=== PATIENT | female | born 1970 | race Caucasian/White ===

== ENCOUNTER → 2017-08-21 | Outpatient (CLI) | payer OTHER ==
[~2017-08-21] MED LIST: BUPROPION; HYDROCODONE-AP1 EAC6 PO; IBUPROFEN 800800 M1 PO; MICARDIS HCT 81 EACH PO; NEXIUM; NEXIUM40 MG PO; NORCO 5-325 TA1 EACH PO; SYNTHROID
== END ==
LOC: M.MRI 08-14 16:09
DX: M54.41 Lumbago with sciatica, right side (principal); M47.896 Other spondylosis, lumbar region; M25.551 Pain in right hip

== ENCOUNTER → 2018-06-04 | Outpatient (CLI) | payer OTHER | LOC: M.MRI 07:30 | DX: M47.26 Other spondylosis with radiculopathy, lumbar region (principal); M48.061 Spinal stenosis, lumbar region without neurogenic claudication ==

== ENCOUNTER → 2018-11-14 | Outpatient (CLI) | payer OTHER | LOC: M.MRI 07:13 | DX: S83.005D Unspecified dislocation of left patella, subsequent encounter (principal); M67.462 Ganglion, left knee; M71.22 Synovial cyst of popliteal space [Baker], left knee; X58.XXXD Exposure to other specified factors, subsequent encounter ==

== ENCOUNTER 2019-02-18 14:30 | Emergency (ER) | payer OTHER ==
[~2019-02-18] VITALS: Ht 157.5 cm; Wt 104.3 kg
[2019-02-18] MEDS ORDERED: IBUPROFEN 200200 M1 PO (14:49)
[2019-02-18] MEDS ORDERED: SYNTHROID112 MC1 PO (14:50)
[2019-02-18] MEDS ORDERED: NEXIUM40 MG PO (14:50)
[2019-02-18] MEDS ORDERED: MICARDIS 80 MG80 MG PO (14:51)
[2019-02-18] MEDS ORDERED: PROGESTERONE100 MG PO (14:51)
[2019-02-18] MEDS ORDERED: NORVASC2.5 MG PO (14:51)
[2019-02-18 15:22] VITALS: BP 143/79
== END 2019-02-18 15:23 | disposition home or self-care (01) ==
LOC: M.ERS 14:30
DX: M25.562 Pain in left knee (principal); F41.9 Anxiety disorder, unspecified; E03.9 Hypothyroidism, unspecified; K21.9 Gastro-esophageal reflux disease without esophagitis; F17.210 Nicotine dependence, cigarettes, uncomplicated; Z88.0 Allergy status to penicillin; Z88.1 Allergy status to other antibiotic agents

== ENCOUNTER → 2019-03-26 | Outpatient (CLI) | payer OTHER ==
[~2019-03-26] MED LIST changes: +IBUPROFEN 200200 M1 PO; +MICARDIS 80 MG80 MG PO; +NORVASC2.5 MG PO; +PROGESTERONE100 MG PO; +SYNTHROID112 MC1 PO
== END ==
LOC: M.RAD 06:59
DX: R05 Cough (principal); F17.200 Nicotine dependence, unspecified, uncomplicated

== ENCOUNTER 2019-05-27 11:54 | Emergency (ER) | payer OTHER ==
[~2019-05-27] VITALS: Ht 157.5 cm; Wt 99.8 kg
[2019-05-27] MEDS ORDERED: ZPAK PO (12:21)
[2019-05-27] MEDS ORDERED: PROMETH-CODEIN 65 ML PO (12:21)
[2019-05-27] MEDS ORDERED: ALBUTEROL2.5 MG/31 INH (12:21)
[2019-05-27] MEDS ORDERED: MEDROLDOSEPACK PO (12:21)
[2019-05-27] MEDS ORDERED: IPRAT-ALBUT 0.5-3 ML INH (12:23)
[2019-05-27 12:39] VITALS: BP 156/80
== END 2019-05-27 12:40 | disposition home or self-care (01) ==
LOC: M.ERS 11:54
DX: J20.9 Acute bronchitis, unspecified (principal); E03.9 Hypothyroidism, unspecified; K21.9 Gastro-esophageal reflux disease without esophagitis; I10 Essential (primary) hypertension; F41.9 Anxiety disorder, unspecified; F17.210 Nicotine dependence, cigarettes, uncomplicated; Z88.0 Allergy status to penicillin; Z88.1 Allergy status to other antibiotic agents

== ENCOUNTER 2019-06-10 16:40 | Emergency (ER) | payer OTHER ==
[~2019-06-10] VITALS: Ht 157.5 cm; Wt 96.6 kg
[~2019-06-10 16:40] MED LIST changes: +ALBUTEROL2.5 MG/31 INH; +IPRAT-ALBUT 0.5-3 ML INH; +MEDROLDOSEPACK PO; +PROMETH-CODEIN 65 ML PO; +ZPAK PO
[2019-06-10] MEDS ORDERED: CENTANY30 GM TOP (17:09)
[2019-06-10 17:38] VITALS: BP 167/105
== END 2019-06-10 17:39 | disposition home or self-care (01) ==
LOC: M.ERS 16:40
DX: S61.211A Laceration without foreign body of left index finger without damage to nail, initial encounter (principal); I10 Essential (primary) hypertension; F41.9 Anxiety disorder, unspecified; E03.9 Hypothyroidism, unspecified; K21.9 Gastro-esophageal reflux disease without esophagitis; F17.210 Nicotine dependence, cigarettes, uncomplicated; Z88.0 Allergy status to penicillin; Z88.1 Allergy status to other antibiotic agents; W25.XXXA Contact with sharp glass, initial encounter; Y92.89 Other specified places as the place of occurrence of the external cause; Y93.89 Activity, other specified; Y99.8 Other external cause status

== ENCOUNTER 2019-07-17 11:35 | Emergency (ER) | payer OTHER ==
[~2019-07-17] VITALS: Ht 157.5 cm; Wt 95.3 kg
[~2019-07-17 11:35] MED LIST changes: +CENTANY30 GM TOP
[2019-07-17] MEDS ORDERED: TOPROL XL50 MG PO (11:53)
[2019-07-17 12:28] LABS: INFLUENZA A ANTIGEN Negative (Negative); INFLUENZA B ANTIGEN Negative (Negative)
[2019-07-17 13:48] VITALS: BP 132/60
== END 2019-07-17 13:49 | disposition home or self-care (01) ==
LOC: M.ERS 11:35
PROVIDERS: Nurse Practitioner Family
DX: J40 Bronchitis, not specified as acute or chronic (principal); I10 Essential (primary) hypertension; F41.9 Anxiety disorder, unspecified; K21.9 Gastro-esophageal reflux disease without esophagitis; E03.9 Hypothyroidism, unspecified; F17.210 Nicotine dependence, cigarettes, uncomplicated; Z88.0 Allergy status to penicillin; Z88.1 Allergy status to other antibiotic agents

== ENCOUNTER 2019-08-25 06:05 | Inpatient (IN) | payer OTHER ==
[2019-08-14 09:12] LABS: ABSOLUTE BASOPHILS 0.1 thou/uL (0.0-0.2); ABSOLUTE EOSINOPHILS 0.1 thou/uL (0.0-0.7); ABSOLUTE LYMPHOCYTES 1.2 thou/uL (0.8-5.3); ABSOLUTE MONOCYTES 0.6 thou/uL (0.0-1.2); ABSOLUTE NEUTROPHILS 5.4 thou/uL (1.6-8.1); BASOPHILS 0.9 %; EOSINOPHILS 1.6 %; HEMATOCRIT 39.7 % (37.0-47.0); HEMOGLOBIN 14.2 gm/dL (12.0-15.0); LYMPHOCYTES 16.5 %; MCH 35.2 pg (26.0-34.0); MCHC 35.9 g/dL (28.0-37.0); MCV 98.1 fL (80.0-100.0); MONOCYTES 8.1 %; MPV 7.2 fl. (7.2-11.1); NUCLEATED RBCS 0 /100WBC; PLATELET COUNT* 259 thou/uL (150-400); POLYS 72.9 %; RBC 4.04 mil/uL (4.20-5.00); RDW-CV 13.2 % (10.5-14.5); WBC 7.3 thou/uL (4.0-11.0)
[2019-08-14 09:25] LABS: APTT 26.6 Seconds (25.0-31.3); INR 0.9; PROTIME 9.6 Seconds (9.20-11.50)
[2019-08-14 09:26] LABS: CALCIUM 9.3 mg/dL (8.5-10.1); CREATININE 0.8 mg/dL (0.6-1.3); POTASSIUM 4.1 mmol/L (3.5-5.1); TOTAL BILIRUBIN 0.7 mg/dL (<0.1-1.0); TOTAL PROTEIN 7.5 g/dL (6.4-8.2)
[2019-08-14 10:50] LABS: ESR (SEDRATE) 11 mm/hr (0-20)
[2019-08-15 02:07] LABS: GLYCOHEMOGLOBIN (HGB A1C) 4.9 % (4.8-5.6)
--- NOTE | 2019-08-22 14:57 | EKG ---
[place] [address] ELECTROCARDIOGRAM REPORT Name: QUENTIN PRITCHETT Room: [facility]#: [id number] Admission: Attend Phys: Lorne Jaquez DO Discharge: Date of : 70 Date of Service: 08/14/19918 Report #: [id number] THIS REPORT FOR: //name// [facility] Test Date: 2019-08-14 Test Time: 09:19:18 Pat Name: QUENTIN PRITCHETT Department: Room: Gender: F Glass Installer: : 1970 Requested By: Lorne Jaquez Order Number: [id number] Trey MD: Lorne Espitia Measurements Intervals Lenora Rate: 85 P: 38 VA: 145 QRS: 16 QRSD: 83 T: 47 QT: 343 QTc: 408 Interpretive Statements Sinus rhythm No previous ECG available for comparison Electronically Signed On 08-14-2019 9:57:11 CABLE RESPOOLER by Lorne Espitia [email or web address] <ELECTRONICALLY SIGNED> By: Lorne Espitia MD, [facility] 08/14/1957 8 8 Lorne Espitia MD, FACC /EPI
[~2019-08-25] VITALS: Ht 157.5 cm; Wt 96.6 kg
--- NOTE | ~2019-08-25 | OP ---
[facility] [address] [place] [address] OPERATIVE REPORT Name: QUENTIN PRITCHETT Room: [address] IN .R.#: [id number] Admission: 08/25/19 Attend Phys: Julio Cesar Damon Discharge: Date of : 70 Report #: [id number] THIS REPORT FOR: //name// cc: Claribel Richey Tami FNP ~ THIS REPORT FOR: //name// CC: Claribel Davis DICTATED BY: Diogo Patton DO DATE OF SERVICE: 08/25/2019 PREOPERATIVE DIAGNOSIS: Advanced degenerative joint disease of the right knee. POSTOPERATIVE DIAGNOSIS: Advanced degenerative joint disease of the right knee. PROCEDURE PERFORMED: Right total knee arthroplasty. SURGEON: Lorne Jaquez DO. ASSISTANTS: Diogo Patton DO and Juan Layne DO. ANESTHESIA: Local, general, and a peripheral block by Anesthesia. IMPLANTS USED: Zuleyma Persona total knee system with the following components: 1. A 6 narrow femur. 2. D tibial baseplate. 3. A 29 mm round patella. 4. A 12 mm medial congruent polyethylene insert. FINDINGS: On gross pathology, the patient had significant eburnated bone, especially in the lateral patellofemoral compartments. She had some valgus angulation that was corrected on physical exam and lacked about 3 degrees of full extension. There was some synovial hypertrophy in the suprapatellar area, which was excised during the operation. SPECIMENS REMOVED: None. ESTIMATED BLOOD LOSS: 100 mL. COMPLICATIONS: None. CONDITION: [place] [id number] OPERATIVE REPORT Name: QUENTIN PRITCHETT Room: [address] IN [facility].#: [id number] Admission: 08/25/19 Attend Phys: Julio Cesar Damon Discharge: Date of : 70 Report #: [id number] ANTIBIOTICS: 600 mg of clindamycin, IV piggyback and preop. OPERATIVE INDICATIONS: The patient is a pleasant 49-year-old female who has had significant right knee pain for some time. Her symptoms and x-ray findings were consistent with degenerative joint disease. Her symptoms were beginning to limit her activities of daily living, and she had become more sedentary. We discussed with her risks, benefits, complications, alternatives, and indications of a total knee arthroplasty with her and she elected to proceed to the operating room today. DESCRIPTION OF PROCEDURE: The patient was seen in the preoperative area. Correct operative site was marked. Verbal and written consents were obtained. She was transferred to the operative suite and placed in a supine position on the operating table and given the benefit of general anesthesia by the anesthesia team. Right lower extremity had a well-padded tourniquet placed and the right lower extremity was prepped and draped in the usual sterile fashion. Timeout was performed indicating the correct patient, procedure, and procedure site. All in attendance were in agreement. A tourniquet was inflated to 300 mmHg. A #10 scalpel was used to make an anterior longitudinal incision over the knee that was taken down to the level of capsule. A new #10 blade scalpel was used to perform a medial parapatellar arthrotomy and the joint was exposed proximally. We then used intramedullary drill for the femur to gain access to the canal and an intramedullary guide was placed. A distal femoral cutting block was held in place with bone pads, and the distal femoral resection was made using an oscillating saw. Excess bone and osteophytes were removed with rongeur. We then placed our external tibial guide and took 10 mm off the high medial side of the proximal tibia bone and placed bone pins. Then, an oscillating saw was once again used to perform resection of the proximal tibia. Electrocautery was used to release soft tissue attachments from the cut bone. Excess bone and osteophytes were removed with a rongeur. The knee was then taken into extension. A 10 mm spacer block was placed and found to have full extension and good coronal plane balancing. Two pins were removed and the knee was once again flexed. An AP femur sizer was placed. She was measured and found to be a size 6 femur. Appropriate 4-in-1 cutting block was placed and malleted into place and held with cross pins. Oscillating saw was once again used to complete the 4-in-1 cuts of the distal femur. Excess bone and osteophytes were removed with rongeur. The ACL and menisci were then excised from the knee to allow proper exposure. A trial tibia was then held in place with bone screws and verification alignment was made with a drop smooth. Femoral trial was then malleted into place and found to be appropriate for a narrow final implant. A 10 mm poly followed by 11 and 12 mm poly were then inserted. He found to be stable with full extension and good coronal and sagittal plane balancing with a 12 mm poly insert. The patella was then everted and denervated with electrocautery and then excised with an oscillating saw. She was measured to be a 29 mm round patella[place] [address] OPERATIVE REPORT Name: QUENTIN PRITCHETT Room: 150-[address] [facility] IN [facility]#: [id number] Admission: 08/25/19 Attend Phys: Julio Cesar Damon Discharge: Date of : 70 Report #: [id number]. Trial patella was inserted. The knee was taken through range of motion and found to have excellent patellar tracking. Trial implants were removed with the exception of the proximal tibia. The tibial reamer followed by the cruciate punch was used to prepare the tibia for the keel baseplate. Once this was performed, the trial was removed as well as bone screws. The knee was thoroughly irrigated with pulsatile lavage while cement was mixed on the back table under vacuum suction and final implants were sterilely passed to the back table. Cement was placed on the implant as well as the bony surfaces of the knee. Final implants were then malleted into place. Excess cement was removed with a [place] and a Mino. The 12 mm poly was inserted and found to be stable. The knee was held in extension while the cement hardened. Once cement had hardened, our final 12 mm poly was inserted and properly secured. Knee was once again thoroughly irrigated with pulsatile lavage. Local anesthetic was injected, and the tourniquet was deflated for a total tourniquet time of 62 minutes. Capsule was reapproximated using #1 Vicryl in a ajbltf-fo-tmerd fashion followed by running #1 Stratafix. Soft tissue was once again irrigated. PRP was injected into the capsule. The skin was closed using 2-0 Vicryl in an inverted subcuticular fashion followed by running 3-0 Stratafix. Dermabond skin glue was placed on the incision followed by sterile Mepilex dressing. The patient awakened from anesthesia and was transferred to the PACU in stable condition. All counts were performed to verify correct x 2. Dr. Jaquez was present throughout all critical decision making aspects of the case. POSTOPERATIVE PLAN: The patient will be monitored in PACU until awake and stable and transferred to the Med-Surg floor. She will be weightbearing as tolerated to the right lower extremity and will receive weight based antibiotics IV as well as p.o. analgesia and mechanical or chemical DVT prophylaxis. She will receive physical therapy while inpatient. By: [id number] cesar Jaquez DO /nt
[~2019-08-25 06:05] MED LIST changes: +CAMILA0.35 MG PO; +KAPSPARGO SPRIN50 MG PO; +PROAIR HFA8.5 GM INH; +TELMISARTAN-HC1 EAC2 PO; +TOPROL XL50 MG PO
[2019-08-25 07:04] VITALS: BP 123/60
--- NOTE | 2019-08-25 13:45 | NUR ---
PT TO ROOM 111 VIA BED. ON Q PUMP,FOOT PUMPS AND POLAR PACK IN PLACE. PAIN WELL CONTROLLED.PT ORIENTED TO ROOM,CALL LIGHT WITHIN REACH. BED ALARM ON
[2019-08-25 14:00] VITALS: BP 138/73
--- NOTE | 2019-08-25 18:04 | NUR ---
PT UP FROM OR THIS AFTERNOON. PAIN WELL CONTROLLED WITH PO MEDS. IVF INFUSING. PT UP WITH ASSIST AND WALKER.
[2019-08-25 20:30] VITALS: BP 157/87
[2019-08-26] VITALS: BP 159/101
[2019-08-26 03:25] LABS: HEMOGLOBIN 11.7 gm/dL (12.0-15.0); MCH 34.4 pg (26.0-34.0); MCHC 35.3 g/dL (28.0-37.0); MCV 97.5 fL (80.0-100.0); MPV 7.5 fl. (7.2-11.1); RBC 3.39 mil/uL (4.20-5.00); RDW-CV 12.8 % (10.5-14.5); WBC 11.4 thou/uL (4.0-11.0)
[2019-08-26 03:32] LABS: ALBUMIN 3.3 g/dL (3.4-5.0); CREATININE 0.8 mg/dL (0.6-1.3); POTASSIUM 3.9 mmol/L (3.5-5.1)
[2019-08-26 04:00] VITALS: BP 178/95
--- NOTE | 2019-08-26 06:45 | NUR ---
PATIENT HAS RESTED OFF AND ON DURING THE NIGHT. VSS ON RA. PAIN MEDICATIONS GIVEN ORDERED AND CHARTED. PATIENT IS UP WITH ASSIST X 1 WITH GAITBELT AND WALKER TO THE [facility]. DRESSING TO RIGHT KNEE IS C/D/I, ON Q PUMP IN PLACE AT 6. JOSE [place], SCD'S AND POLAR PACK IN PLACE. IV IN RIGHT FOREARM-SL. PATIENT INSTRUCTED TO USE CALL LIGHT WHEN NEEDING ASSISTANCE. HOURLY ROUNDS MADE. WILL CONINTUE WITH PLAN OF CARE AND NURSING TO MONITOR.
[2019-08-26 10:26] VITALS: BP 189/94
--- NOTE | 2019-08-26 13:00 | NUR ---
CALLED IN PRESCRIPTION FOR ELIQUIS WRITTEN TO [facility]. COPAY WAS $12. PT.SAID SHE LIVES WITH HER S.O. HE IS HOME MOST OF THE TIME. SHE HAS A FWW,STOOLRISER,SHOWER CHAIR. SHE IS NORMALLY INDEPENDENT. SHE WOULD LIKE TO DO OUTPT.THERAPY AT [facility] IN [place]. HER S.O.CAN DRIVE HER TO APPTS. PT.HAVING SOME ISSUES WITH PAIN TODAY,SO WILL STAY ANOTHER NIGHT.
[2019-08-26 16:20] VITALS: BP 159/97
--- NOTE | 2019-08-26 17:08 | NUR ---
ASSUMED CARE OF PATIENT AT APPROX 0730. ALERT AND ORIENTED X4. ASSESSMENT COMPLETED AND CHARTED. COMPLAINT OF PAIN MANAGED WITH OXY IR EVERY 3 HOURS AND ADDED TORADOL EVERY 6 HOURS. PATIENT STATES PAIN IS MUCH BETTER AFTER TORADOL. UP WITH GAIT BELT AND WALKER TO THE BATHROOM, VOIDING WITHOUT ISSUE. ONQ IN PLACE AND INFUSING AT 10. FALL PRECAUTIONS IN PLACE. CALL LIGHT WITHIN REACH. HOURLY ROUNDS COMPLETED. WILL CONTINUE WITH PLAN OF CARE.
--- NOTE | 2019-08-26 17:13 | NUR ---
RECIEVED O.T. EVAL AND TX ORDER. WILL DEFER TO P.T. AT THIS TIME. PLEASE ORDER FURTHER O.T. SERVICES IF NEEDED.
[2019-08-26 17:46] VITALS: BP 189/94
[2019-08-26 20:00] VITALS: BP 142/83
[2019-08-27] VITALS: BP 129/63
[2019-08-27 03:11] LABS: HEMATOCRIT 31.1 % (37.0-47.0); HEMOGLOBIN 11.1 gm/dL (12.0-15.0)
[2019-08-27 04:00] VITALS: BP 100/51
--- NOTE | 2019-08-27 05:16 | NUR ---
PATIENT HAS REMAINED ALERT AND ORIENTED X 4 THROUGHOUT THE SHIFT AND RESTING QUIETLY ON HOURLY ROUNDS. IMPROVED PAIN CONTROL TONIGHT WITH PAIN MEDICATIONS PROVIDED Q3H AT PATIENT REQUEST. DRESSING RIGHT KNEE CLEAN AND DRY. POLAR CARE UTILIZED. BILAT JOSE HOSE AND SCD'S ON. UP TO BR WITH GAIT BELT AND WALKER/CGA. VITALS SIGNS STABLE ON ROOM AIR. PLANNING FOR DISCHARGE TODAY.
[2019-08-27 09:52] VITALS: BP 118/68
[2019-08-27] MEDS ORDERED: ULTRAM50 MG PO (12:38)
[2019-08-27] MEDS ORDERED: OXYCODONE HCL 55 MG PO (12:39)
[2019-08-27] MEDS ORDERED: ELIQUIS2.5 MG PO (12:40)
[2019-08-27] MEDS ORDERED: ONDANSETRON HCL4 M2 PO (13:21)
--- NOTE | 2019-08-27 13:39 | NUR ---
cm faxed order to [facility] in [facility] iftikhar/Becky who has confirmed receipt and stated pt appt is scheduled for Sunday. [phone] (f) [phone] (p)
[2019-08-27 13:42] VITALS: BP 189/94
--- NOTE | 2019-08-27 14:17 | NUR ---
ASSUMED CARE OF PATIENT AT APPROX 0730. ALERT AND ORIENTED X4. ASSESSMENT COMPLETED AND CHARTED. VSS ON ROOM AIR. PAIN MANAGED WITH ORAL OXY IR AND IV TORADOL. PATIENT HAS BEEN UP WITH ONE USING THE GAIT BELT AND WALKER. WORKING VERY WELL WITH THERAPIES AND PROGRESSED TOWARD GOALS. PATIENT DISCHARGED AT 1415 WITH ALL PERSONAL BELONGINGS, PRESCRIPTIONS AND DISCHARGE INFORMATION.
== END 2019-08-27 14:15 | disposition home or self-care (01) | DRG 470 ==
LOC: M.TBA 06:05 → M.PRE 06:25 → M.TBA 09:49 → M.ORTHSURG 09:49 → M.PRE 12:13 → M.ORTHSURG 13:27
PROVIDERS: Orthopaedic Surgery; ADMIT Internal Medicine
PROC: 0SRC0J9 Replacement of Right Knee Joint with Synthetic Substitute, Cemented, Open Approach (ICD-10-PCS; principal; 2019-08-25)
DX: M17.11 Unilateral primary osteoarthritis, right knee (principal); K21.9 Gastro-esophageal reflux disease without esophagitis; E03.9 Hypothyroidism, unspecified; F41.9 Anxiety disorder, unspecified; I10 Essential (primary) hypertension; F17.210 Nicotine dependence, cigarettes, uncomplicated; Z72.89 Other problems related to lifestyle; Z28.21 Immunization not carried out because of patient refusal; Z88.0 Allergy status to penicillin; Z88.8 Allergy status to other drugs, medicaments and biological substances; Z82.49 Family history of ischemic heart disease and other diseases of the circulatory system; Z83.3 Family history of diabetes mellitus; Z79.899 Other long term (current) drug therapy